=== PATIENT | female | born 1985 | race Caucasian/White ===

== ENCOUNTER 2018-01-13 01:50 | Emergency (ER) | END 2018-01-13 04:30 | disposition left against medical advice (07) ==

== ENCOUNTER 2018-10-13 19:55 | Emergency (ER) | payer OTHER ==
[~2018-10-13] VITALS: Ht 165.1 cm; Wt 120.0 kg
[~2018-10-13 19:55] MED LIST: AMOX1TAB10 PO; DOXY100T20 PO; HYDR-3498 PO; IBUP800T48 PO; METR500T PO; ONDA4TAB14 PO; ONDA4TAB35 PO
[2018-10-13 20:07] VITALS: Ht 165.1 cm; Wt 120.0 kg
--- NOTE | 2018-10-13 20:45 | ERD ---
ER Documentation Chief Complaint Chief Complaint ST with white sores X 4 days HPI This is a 33-year-old female who presents to emergency department with complaints of sore throat, frontal headache, sinus congestion for about 4 days. LMP: Stated that it 2 days ago. Denies headache, head injury, loss of consciousness, dizziness, neck pain, neck stiffness, throat pain, difficulty swallowing, difficulty breathing lying flat, shoulder pain, chest pain, back pain, abdominal pain, nausea, vomiting, constipation, diarrhea, urinary symptoms, or possibility being , loss of bowel and bladder control, trauma, injury, falls, difficulty walking due to pain, numbness or tingling sensation, calf pain, recent travel, recent major surgery in the last 3 weeks, calf pain, recent long travel, recent exposure to any illness, recent antibiotic use in the last 3 months, fever, chills, seizures. Past medical history: Denies. Surgical history: Denies. Social: Denies smoking, use of alcoholic beverages, use of illegal drugs. ROS All systems reviewed and are negative except as per history of present illness. Medications Home Meds Active Scripts Ondansetron (Ondansetron Odt) 4 Mg Tab.rapdis, 4 MG PO Q6H PRN for NAUSEA AND/OR VOMITING, #20 TAB Prov:ENOCHERUMCHIP Beulah 10/13/18 Ibuprofen* (Motrin*) 800 Mg Tab, 800 MG PO Q6H PRN for PAIN AND OR ELEVATED TEMP, #30 TAB Prov:ENOCHBRIAN Riojas 10/13/18 Amoxicillin/Potassium Clav (Amox-Clav 875-125 mg Tablet) 875-125 mg Tab, 1 TAB PO BID for 10 Days, #20 TAB Prov:JAVIERAMAURYBRIAN 10/13/18 Metronidazole* (Flagyl*) 500 Mg Tablet, 500 MG PO BID for 14 Days, TAB Prov:AVELINA COCHRAN PA-C 09/27/15 Doxycycline Hyclate* (Doxycycline Hyclate*) 100 Mg Tablet.dr, 100 MG PO BID for 14 Days, TAB Prov:AVELINA COCHRAN PA-C 09/27/15 Ondansetron Hcl* (Zofran* ODT) 4 mg -ODT Tab.disper, 4 MG PO Q8 PRN for NAUSEA AND/OR VOMITING, #30 TAB Prov:MANOJSANDRO MISHRA LidiaMiranda [employer] 08/16/15 Hydrocodone Bit-Acetaminophen* ([place]*) 5-325 Mg Tab, 1 TAB PO Q6 PRN for PAIN, #10 TAB Prov:SANDRO ARANDAMiranda [employer]EL[employer] 08/16/15 Reported Medications [None] No Conflict Check 09/11/10 Allergies Allergies: Coded Allergies: No Known Allergies (Verified Allergy, Mild, 10/13/18) PMhx/Soc Medical and Surgical Hx: pt denies Medical Hx History of Surgery: Yes (c section x1 ) Anesthesia Reaction: No Hx Neurological Disorder: No Hx Respiratory Disorders: No Hx Cardiac Disorders: No Hx Psychiatric Problems: No Hx Miscellaneous Medical Probl: No Hx Alcohol Use: No Hx Substance Use: No Hx Tobacco Use: Yes (5cig/day) Smoking Status: Current every day smoker Physical Exam Vitals Physical Exam Head: Atraumatic Eyes: Normal Conjunctiva ENT: Normal External Ears, Nose and Mouth. Bilateral ears: TMs are not erythematous. No bleeding. No discharge. No hearing loss. No mastoid tenderness. Nose: There is no frontal and maxillary sinus tenderness palpation. Throat: Uvula is in midline and nondisplaced. Tonsils are +2 bilaterally with redness and with mild exudates. Tolerating secretions. Patent airway. Speaks full and clear sentences. No tripoding. Neck: Full range of motion. No meningismus. No nuchal rigidity. No signs of meningeal irritation. Resp: Clear to auscultation bilaterally. No accessory muscle use in breathing. Cardio: Regular rate and rhythm, no murmurs Abd: Soft, non tender, non distended. Normal bowel sounds. Negative Howe sign. Skin: No petechiae or rashes. Color appears normal for ethnicity. No skin tenting. No signs of severe dehydration. Back: No midline or flank tenderness Ext: No cyanosis, or edema Neur: Awake and alert. No neurological deficits. Psych: Normal Mood and Affect Results 24 hrs Current Medications Medications Dose Sig/Julia Start Time Status Last (Trade) Ordered Route PRN Stop Time Admin Dose Reason Admin Ibuprofen 800 mg ONCE ONCE 10/13/18 DC 10/13/18 (Motrin) PO 21:00 20:52 10/13/18 21:01 Ondansetron 4 mg ONCE STAT 10/13/18 DC 10/13/18 HCl (Zofran ODT 20:46 20:51 Odt) 10/13/18 20:47 Procedures/MDM Diagnostic tests: Clinical exam. Treatment: Motrin. Zofran. Re-evaluation: No episode of emesis here in the emergency department. Denies throat pain. No tripoding. Speaks full and clear sentences. No neurological deficits. Differential diagnosis I have low suspicion for sepsis, meningitis, peritonsillar abscess. Final diagnosis: Sinusitis. Pharyngitis. Prescription: Augmentin. Motrin. Zofran. Follow-up with PCP in the next 24-48 hours. Come back here in the emergency department for any new symptoms or any worsening symptoms. All questions and concerns were answered. Patient and family members verbalized understanding and agreed with plan of care. Hemodynamically stable on discharge. Departure Diagnosis: Primary Impression: Pharyngitis Additional Impression: Sinusitis Condition: Stable Additional Instructions: Follow-up with PCP in the next 24-48 hours. Come back here in the emergency department for any new symptoms or any worsening symptoms. BRIAN KENDALL Oct 13, 2018 20:45
[2018-10-13] MEDS ORDERED: ONDANSETRON (ODT) 4 MG TAB ODT STA (20:46)
[2018-10-13] MEDS ORDERED: IBUPROFEN 800 MG TAB PO ONE (21:00)
[2018-10-13 21:18] VITALS: BP 116/77; PULSE 87; RESP 18
== END 2018-10-13 21:19 | disposition home or self-care (01) ==
LOC: FTE 19:55
DX: J02.9 Acute pharyngitis, unspecified (principal); F17.210 Nicotine dependence, cigarettes, uncomplicated; J32.9 Chronic sinusitis, unspecified
CPT/HCPCS: Z7610 ×2; 99283